=== PATIENT | female | born 1955 | race Caucasian/White ===

== ENCOUNTER 2020-08-13 10:27 | Emergency (ER) | payer OTHER ==
[2020-08-13 10:34] VITALS: BP 134/78; PULSE 58; TEMP 98.8
[2020-08-13 10:41] VITALS: RESP 18
--- NOTE | 2020-08-13 10:55 | XR ---
EXAMINATION TYPE: XR ankle complete LT, XR foot complete LT DATE OF EXAM: 08/13/2020 CLINICAL HISTORY: Pain after jumping injury TECHNIQUE: Frontal, lateral and oblique images of the left ankle and foot are obtained. COMPARISON: None. FINDINGS: Osseous structures are somewhat demineralized. There is no acute fracture/dislocation evid ent in the left ankle. The ankle mortise appears within normal limits. Small inferior calcaneal spur . The overlying soft tissue appears unremarkable. There is no acute fracture or dislocation evident in the left foot. The joint spaces in the left mehran t are preserved. Suspect old healed fracture through the third proximal phalanx midshaft. Flexion in the toes is present. Overlying soft tissue is unremarkable. IMPRESSION: There is no acute fracture or dislocation in the left ankle or foot.
--- NOTE | 2020-08-13 10:59 | ED ---
Lower Extremity Injury HPI - General Source: patient Mode of arrival: wheelchair Limitations: no limitations <Stephy Moore - Last Filed: 08/13/20 11:43> <Vera George - Last Filed: 08/14/20 12:26> - General Chief Complaint: Extremity Injury, Lower Stated Complaint: l ankle painful Time Seen by Provider: 08/13/20 10:36 - History of Present Illness Initial Comments: very fit appearing 65yo female presenting for cc of left foot/thelma pain. pt states she was walking yesterday and attempted to [place] when she misstepped and inverted foot/ankle. pt states she has localized pain to the proximal lateral foot as well as swelling. pt states she can weight bear but this is painful. pt denies injury to other extremities/aspect of the left leg. denies injury to head or neck. pt denies loss of sensation or additional complaints in regards to injury aside from swelling/pain. patient appears well nontoxic in no acute distress. (Stephy Moore) - Related Data Home Medications Medication Instructions Recorded Confirmed Ibuprofen [Motrin Ib] 400 mg PO Q8H PRN 08/13/20 08/13/20 Allergies Allergy/AdvReac Type Severity Reaction Status Date / Time No Known Allergies Allergy Verified 08/13/20 11:02 Review of Systems ROS Other: All systems not noted in ROS Statement are negative. <Stephy Moore - Last Filed: 08/13/20 11:43> ROS Other: All systems not noted in ROS Statement are negative. <Vera George - Last Filed: 08/14/20 12:26> ROS Statement: Those systems with pertinent positive or pertinent negative responses have been documented in the HPI. Past Medical History Past Surgical History: Orthopedic Surgery Additional Past Surgical History / Comment(s): mitral valve replacemnt - porcline Past Psychological History: No Psychological Hx Reported Smoking Status: Never smoker Past Alcohol Use History: Daily Past Drug Use History: None Reported <Stephy Moore - Last Filed: 08/13/20 11:43> General Exam Limitations: no limitations <Stephy Moore - Last Filed: 08/13/20 11:43> - General Exam Comments Initial Comments: General: The patient is awake and alert, in no distress, and does not appear acutely ill. Eye: Pupils are equal, round and reactive to light, extra-ocular movements are intact. No nystagmus. There is normal conjunctiva bilaterally. No signs of icterus. Musculoskeletal: soft tissue swelling over the lateral aspect of the left ankle. pain to palpation of the proximal lateral foot. no pain midfoot. no plantar bruising. Normal ROM, with some tenderness to with ROm of the ankle. Strength 5/5. Sensation intact. DP pulses equal bilaterally 2+. Neurological: A&O x 3. CN II-XII intact grossly, There are no obvious motor or sensory deficits. Coordination appears grossly intact. Speech is normal. Skin: Skin is warm and dry and no rashes or lesions are noted. Psychiatric: Cooperative, appropriate mood & affect, normal judgment. (Stephy Moore) Course Vital Signs 08/13/20 10:32 Temperature 98.8 F Pulse Rate 58 L Respiratory 18 Rate Blood Pressure 134/78 O2 Sat by Pulse 100 Oximetry Medical Decision Making <Stephy Moore - Last Filed: 08/13/20 11:43> <Vera George - Last Filed: 08/14/20 12:26> - Medical Decision Making XR (-). Injury hx Pe findings concerning for possible sprain. pt is to follow rice instruction, apply tito bandage and f/u with orthopedic for persistent pain (>3-4 days). Pt provided pain medications in the ER. pt is agreeable to this care plan and discharge. dr. george reviewed imaging and is agreeable to this care plan and discharge. (Stephy Moore) I was available for consultation in the emergency department. The history and physical exam were done by the midlevel provider. I was consulted for this patients care. I reviewed the case with the midlevel provider and based on their presentation of the patient, I agree with the assessment, medical decision making and plan of care as documented. Chart was dictated using [employer] dictation software. Attempts were made to correct any dictation errors however some typographical errors may persist. Patient was seen during a national state of emergency due to the Covid-19 pandemic. (Vera George) Disposition Is patient prescribed a controlled substance at d/c from ED?: No Time of Disposition: 10:58 <Stephy Moore - Last Filed: 08/13/20 11:43> <Vera George - Last Filed: 08/14/20 12:26> Clinical Impression: Left foot pain, Swelling of left foot, Injury of left foot Disposition: HOME SELF-CARE Condition: Good Instructions (If sedation given, give patient instructions): Foot Contusion (ED) Additional Instructions: Please use medication as discussed. Please follow-up with family doctor in the next 2 days, as well as orthopedic surgery in the next week. Please return to emergency room if the symptoms increase or worsen or for any other concerns. Referrals: Patrick Christianson MD [Primary Care Provider] - 1-2 days Brandon Madrid DO [Doctor of Osteopathic Medicine] - 1-2 days
[2020-08-13] MEDS: ACET/COD 300 MG/30 MG STARTER PACK 6 TAB BTL PO STA (11:14)
== END 2020-08-13 11:04 | disposition home or self-care (01) ==
LOC: EC 10:27
DX: S99.922A Unspecified injury of left foot, initial encounter (principal); Z95.3 Presence of xenogenic heart valve; X50.1XXA Overexertion from prolonged static or awkward postures, initial encounter; Y92.832 Beach as the place of occurrence of the external cause
CPT/HCPCS: 99283

== ENCOUNTER 2021-01-03 07:48 | Day surgery (SDC) | payer OTHER ==
[2020-12-29 15:19] VITALS: BMI 18.6
[2021-01-03 08:14] VITALS: RESP 16; TEMP 98.1
[2021-01-03] MEDS ORDERED: LIDOCAINE 1% (10MG/ML) FOR IV START INTRADERMA ONE (08:14)
[2021-01-03] MEDS ORDERED: LACTATED RINGERS 1,000 ML IV ONE (08:14)
[2021-01-03] MEDS ORDERED: GLYCOPYRROLATE 0.2 MG/ML 2 ML VIAL ONE (08:37)
[2021-01-03] MEDS ORDERED: PROPOFOL 10 MG/ML 20 ML VIAL IV ONE (08:37)
--- NOTE | 2021-01-03 09:21 | P.PCN ---
Date of Procedure: 01/03/21 Description of Procedure: BRIEF HISTORY: Patient is a 65-year-old female presenting for outpatient colonoscopy for screening for malignant neoplasm of the colon. She reports 3 prior colonoscopies. Last colonoscopy approximately 5 years ago. Family history of colon cancer in her father. No change in bowel habits. PROCEDURE PERFORMED: Colonoscopy with polypectomy. PREOPERATIVE DIAGNOSIS: Screening for malignant neoplasm of the colon, last colonoscopy approximately 5 years ago, patient does report family history of colon cancer in her father. ESTIMATED BLOOD LOSS: Minimal. IV sedation per Anesthesia. PROCEDURE: After informed consent was obtained, the patient, was brought into the endoscopy unit. IV sedation was administered by Anesthesia under continuous monitoring. Digital rectal examination was normal. Initially the Olympus CF-190 flexible video colonoscope was then inserted in the rectum, gradually advanced into the cecum without any difficulty. Careful examination was performed as the scope was gradually being withdrawn. Ileocecal valve and the appendiceal orifice were visualized and appeared normal. Prep was excellent. Mucosa of the cecum, ascending colon, transverse colon, descending colon, sigmoid colon, and rectum appeared normal. A diminutive 2 mm cecal polyp was removed cold forcep polypectomy. Colon was somewhat redundant otherwise grossly normal. Retroflexion was performed in the rectum and no lesions were seen, low-grade internal hemorrhoids and. The patient tolerated the procedure well. IMPRESSION: Diminutive cecal polyp removed with cold forcep polypectomy. Low-grade internal hemorrhoids. RECOMMENDATIONS: Findings of this examination were discussed with the patient and her family. Okay to resume diet. Okay to resume medications. Await pathology from polypectomy. Recommend repeat colonoscopy in 5 years for family history of c olon cancer.
[2021-01-03 11:50] VITALS: BP 145/82; PULSE 53
== END 2021-01-03 11:53 | disposition home or self-care (01) ==
LOC: ORWHC2ENDO 07:48
PROVIDERS: ATTEND Internal Medicine
DX: Z12.11 Encounter for screening for malignant neoplasm of colon (principal); D12.0 Benign neoplasm of cecum; K64.8 Other hemorrhoids; Z80.0 Family history of malignant neoplasm of digestive organs; M19.90 Unspecified osteoarthritis, unspecified site; Z98.890 Other specified postprocedural states; Z95.3 Presence of xenogenic heart valve; Z79.1 Long term (current) use of non-steroidal anti-inflammatories (NSAID)
CPT/HCPCS: 88305; 45380; J2704

== ENCOUNTER → 2021-05-30 | Outpatient (CLI) | payer OTHER ==
--- NOTE | 2021-05-31 13:37 | MM ---
Reason for exam: screening (asymptomatic). Last mammogram was performed 2 years and 9 months ago. History: Patient is postmenopausal and is nulliparous. Benign stereotactic core biopsy of the right breast, 2016. Physical Findings: A clinical breast exam by your physician is recommended on an annual basis and results should be correlated with mammographic findings. MG 3D Screening Mammo W/Cad Bilateral CC and MLO view(s) were taken. Prior study comparison: August 29, 2018, mammogram, performed at [place]. August 29, 2017, mammogram, performed at [place]. The breast tissue is heterogeneously dense. This may lower the sensitivity of mammography. No significant changes when compared with prior studies. ASSESSMENT: Benign, BI-RAD 2 RECOMMENDATION: Routine screening mammogram of both breasts in 1 year.
== END | disposition home or self-care (01) ==
LOC: RADMAMWWP 08:13
PROVIDERS: ATTEND Obstetrics & Gynecology
DX: Z12.31 Encounter for screening mammogram for malignant neoplasm of breast (principal); Z78.0 Asymptomatic menopausal state
CPT/HCPCS: 77063; 77067

== ENCOUNTER → 2022-07-24 | Outpatient (CLI) | payer OTHER ==
--- NOTE | 2022-07-25 08:28 | MM ---
Reason for Exam: Screening (asymptomatic). Last mammogram was performed 1 year(s) and 2 month(s) ago. Patient History: Menarche at age 16. Patient has no children. Postmenopausal. 2016, Benign Stereotactic Core Biopsy on the right side. Risk Values: Chery 5 year model risk: 1.9%. NCI Lifetime model risk: 7.7%. Prior Study Comparison: 08/29/2017 Screening Mammogram, [place]. 08/29/2018 Screening Mammogram, [place]. 05/30/2021 Bilateral Screening Mammogram, [facility]. Tissue Density: The breast tissue is heterogeneously dense. This may lower the sensitivity of mammography. Findings: Analyzed By CAD. There is no suspicious group of microcalcifications or new suspicious mass in either breast. Overall Assessment: Negative, BI-RAD 1 Management: Screening Mammogram of both breasts in 1 year. A clinical breast exam by your physician is recommended on an annual basis and results should be correlated with mammographic findings. Electronically signed and approved by: Tang Fisher M.D. Radiologis
== END | disposition home or self-care (01) ==
LOC: RADMAMWWP 08:01
PROVIDERS: ATTEND Obstetrics & Gynecology
DX: Z12.31 Encounter for screening mammogram for malignant neoplasm of breast (principal); Z78.0 Asymptomatic menopausal state
CPT/HCPCS: 77063; 77067

== ENCOUNTER → 2023-06-16 | Outpatient (CLI) | payer OTHER | END | disposition home or self-care (01) | LOC: LABWHC1 10:23 | PROVIDERS: ATTEND Internal Medicine | DX: Z01.83 Encounter for blood typing (principal) | CPT/HCPCS: 86850; 86900; 86901 ==

== ENCOUNTER → 2023-10-29 | Outpatient (CLI) | payer OTHER ==
--- NOTE | 2023-10-30 11:48 | BD ---
EXAMINATION TYPE: Axial Bone Density DATE OF EXAM: 10/29/2023 CLINICAL HISTORY: 68 years old Female. ICD-10 CODE: M81.0 AGE-RELATED OSTEOPOROSIS W/O Height: Weight: FRAX RISK QUESTIONS: Alcohol (3 or more units per day): no Family History (Parent hip fracture): yes Glucocorticoids (More than 3mos): no (Ex: prednisone, prednisolone, methylprednisolone, dexamethasone, and hydrocortisone). History of Fracture in Adulthood: yes Secondary Osteoporosis: 1. Type 1 Diabetes: no 2. Hyperthyroidism: no 3. Menopause before 45: no 4. Malnutrition: no 5. Chronic liver disease: no Rheumatoid Arthritis: no Current Tobacco Use: no RISK FACTORS HISTORY OF: History of Wrist Fracture: left wrist When: 2017 Surgery to Spine/Hip(right/left)/Wrist (right/left): no MEDICATIONS: Osteoporosis Medications: yes How Lon months EXAM MEASUREMENTS: Bone mineral densitometry was performed using the [employer] System. Bone mineral density as measured about the Lumbar spine is: ----- L1-L4(G/cm2): 1.016 T Score Values are as follows: ----- L1: -2.1 ----- L2: -2.0 ----- L3: -1.1 ----- L4: -0.7 ----- L1-L4: -1.4 Z Score Values are as follows: ----- L1: -0.3 ----- L2: -0.1 ----- L3: 0.7 ----- L4: 1.1 ----- L1-L4: 0.5 Bone mineral density has: increased 6.7 % since study of: 08.12.2021 Bone mineral density about the R hip (g/cm2): 0.784 Bone mineral density about the L hip (g/cm2): 0.775 T Score values are as follows: -----R Neck: -1.7 -----L Neck: -1.8 -----R Total: -1.8 -----L Total: -1.8 Z Score values are as follows: -----R Neck: 0.0 -----L Neck: -0.1 -----R Total: -0.4 -----L Total: -0.4 Bone mineral density has: increased 7.3 % since study of: 08.12.2021 FRAX%s: The graph provided illustrates a 24.3% chance for a major osteoporotic fx and a 2.6% chance f or the hips probability for fx in 10 years time. IMPRESSION: Osteopenia (T Score between -2.5 and -1). There is slightly increased risk of fracture and the patient may be considered for treatment. Re-Screen 2-5 years. NOTE: T-SCORE=SD OF THE YOUNG ADULT MEAN.
--- NOTE | 2023-10-30 12:22 | MM ---
Reason for Exam: Screening (asymptomatic). Last mammogram was performed 1 year(s) and 3 month(s) ago. Patient History: Menarche at age 16. Patient has no children. Postmenopausal. 2016, Benign Stereotactic Core Biopsy on the right side. Risk Values: Chery 5 year model risk: 2.0%. NCI Lifetime model risk: 7.2%. Prior Study Comparison: 08/29/2018 Screening Mammogram, [place]. 05/30/2021 Bilateral Screening Mammogram, [facility]. 07/24/2022 Bilateral MG 3D screening mammo w/cad, [facility]. Tissue Density: The breasts are heterogeneously dense, which may obscure small masses. Findings: Analyzed By CAD. There is no suspicious group of microcalcifications or new suspicious mass. Overall Assessment: Negative, BI-RAD 1 Management: Screening Mammogram of both breasts in [address] [facility] will attempt to contact patient to return for supplemental views and ultrasound if indicated. Patient should continue monthly self-breast exams. A clinical breast exam by your physician is recommended on an annual basis. This exam should not preclude additional follow-up of suspicious palpable abnormalities. Note on Chery scores and lifetime risk: 1. A Chery score greater than 3% is considered moderate risk. If this is the case, consider specialist referral to assess eligibility for a risk reducing agent. 2. If overall lifetime risk for the development of breast cancer is 20% or higher, the patient may qualify for future screening with alternating mammogram and breast MRI. Electronically signed and approved by: Hernando Rose DO
== END | disposition home or self-care (01) ==
LOC: RADMAMWWP 07:34
PROVIDERS: ATTEND Internal Medicine
DX: Z12.31 Encounter for screening mammogram for malignant neoplasm of breast (principal); M85.89 Other specified disorders of bone density and structure, multiple sites; M81.0 Age-related osteoporosis without current pathological fracture; Z78.0 Asymptomatic menopausal state
CPT/HCPCS: 77063; 77067; 77080